=== PATIENT | male | born 1995 | race African-American/Black ===

== ENCOUNTER 2020-09-19 11:03 | Emergency (ER) | payer OTHER ==
[~2020-09-19] VITALS: Ht 180.3 cm; Wt 86.2 kg
[2020-09-19] MEDS ORDERED: IBUPROFEN 800800 M1 PO (11:34)
[2020-09-19] MEDS ORDERED: FLEXERIL PO (11:34)
[2020-09-19 12:53] VITALS: BP 125/72
== END 2020-09-19 12:54 | disposition home or self-care (01) ==
LOC: M.ERS 11:03
DX: S16.1XXA Strain of muscle, fascia and tendon at neck level, initial encounter (principal); S20.211A Contusion of right front wall of thorax, initial encounter; S09.8XXA Other specified injuries of head, initial encounter; Z20.828 Contact with and (suspected) exposure to other viral communicable diseases; V89.2XXA Person injured in unspecified motor-vehicle accident, traffic, initial encounter; Y93.89 Activity, other specified; Y92.89 Other specified places as the place of occurrence of the external cause; Y99.8 Other external cause status

== ENCOUNTER 2021-08-28 16:44 | Emergency (ER) | payer OTHER ==
[~2021-08-28] VITALS: Ht 180.3 cm; Wt 86.2 kg
[~2021-08-28 16:44] MED LIST: FLEXERIL PO; IBUPROFEN 800800 M1 PO
[2021-08-28] MEDS ORDERED: MEDROLDOSEPACK PO (17:47)
[2021-08-28] MEDS ORDERED: PROAIR HFA8.5 GM INH (17:47)
[2021-08-28] MEDS ORDERED: ZPAK PO (17:47)
[2021-08-28 17:53] VITALS: BP 130/68
== END 2021-08-28 17:54 | disposition home or self-care (01) ==
LOC: M.ERS 16:44
DX: J40 Bronchitis, not specified as acute or chronic (principal); Z20.822 Contact with and (suspected) exposure to COVID-19

== ENCOUNTER 2021-11-03 17:00 | Emergency (ER) | payer OTHER, MEDICAID ==
[~2021-11-03] VITALS: Ht 180.3 cm; Wt 81.7 kg
[~2021-11-03 17:00] MED LIST changes: +MEDROLDOSEPACK PO; +PROAIR HFA8.5 GM INH; +ZPAK PO
[2021-11-03 17:17] VITALS: BP 114/76
[2021-11-03] MEDS ORDERED: AMOXICILLIN 50500 MG PO (19:21)
== END 2021-11-03 19:30 | disposition home or self-care (01) ==
LOC: M.ERS 17:00
DX: K04.7 Periapical abscess without sinus (principal)